=== PATIENT | female | born 1975 | race Caucasian/White ===

== ENCOUNTER 2019-03-25 11:54 | Emergency (ER) | payer SELFPAY ==
--- OUTSIDE RECORDS SUMMARY | 2019-03-25 12:01 | XMS REPORT | Continuity of Care Document ---
:1975 Author Organization [facility] Address [address] [place] [address] Phone Unavailable Care Team Providers Name Role Phone PHYSICIAN, NO Primary Care Physician Unavailable Insurance Providers Guarantor Jailyn Pal Address [address] [place] [address] Email [email or web address] Payer Self Pay Insurance Subscriber's Name Jailyn Pal Relationship Self / Same As Patient Group Number NA Group Name NA Advance Directives Directive Response Recorded Date/Time Advance Directive on File No 12/19/17 6:27pm Patient/Family Given Education Material R/T Y - 12/19/17....SBM 12/19/17 6: 27pm Directives? Chief Complaint and Reason for Visit Chief Complaint General Complaint Reason for Visit Headache Elevated blood pressure reading without diagnosis of hypertension Problems Active ProblemsNo active problem information available. Past Problems Medical Problem Onset Date Status Elevated blood pressure reading without diagnosis of hypertension Unknown Acute Headache Unknown Acute Medications No medication information available. Social History No social history information available. Hospital Discharge Instructions No hospital discharge instruction information available. Plan of Care Discharge Date 12/19/17 8:30pm Instructions/Education Provided Hypertension, Zkxv-dl-Wzvy General Headache Without Cause, Qpnc-uy-Lsmi Forms Provided Prescription Opioid Use Portal Welcome Letter Prescriptions See Medication Section Referrals NO PHYSICIAN Additional Instructions/Education FOLLOW UP WITH A PRIMARY CARE PROVIDER OR [facility] IN 2-3 DAYS TO KEEP A BLOOD PRESSURE LOG TO DETERMINE IF BLOOD PRESSURE MEDICATION IS NEEDED. ALSO SCHEDULED APPOINTMENT WITH STOCK FEEDER DUE TO PAST MEDICAL HISTORY, RETURN TO THE ER IF YOUR SYMPTOMS WORSEN Functional Status No functional status information available. Allergies, Adverse Reactions, Alerts No allergy information available. Immunizations No immunization information available. Vital Signs Acute Vital Signs Vital Response Date/Time Blood Pressure 129/75 mm Hg 12/19/2017 8:30pm Pulse Pulse Rate (adult) 55 beats per minute (60 - 100) 12/19/2017 8:30pm Respiratory Rate 15 breaths per minute (10 - 24) 12/19/2017 8:30pm Temperature Source Oral 12/19/2017 8:30pm Height 5 ft 4 in 12/19/2017 6:27pm Weight 188.38 lb 12/19/2017 6:27pm Body Mass Index 32.3 kg/m^2 12/19/2017 6:27pm Results Laboratory Results Test Name Result Units Flags Reference Collection Result Comments Date/Time Date/Time White Blood Count 9.3 K/ul 4.0-11.5 12/19/2017 12/19/2017 6:54pm 7:01pm Red Blood Count 5.24 M/ul H 3.80-5.20 12/19/2017 12/19/2017 6:54pm 7:01pm Hemoglobin 12.9 g/dl 10.5-15.7 12/19/2017 12/19/2017 6:54pm 7:01pm Hematocrit 40.4 % 34.0-50.0 12/19/2017 12/19/2017 6:54pm 7:01pm Mean Corpuscular 77.1 fl L 78-98 12/19/2017 12/19/2017 Volume 6:54pm 7:01pm Mean Corpuscular 24.6 pg L 26.2-33.4 12/19/2017 12/19/2017 Hemoglobin 6:54pm 7:01pm Mean Corpuscular 31.9 g/dl 31.5-36.2 12/19/2017 12/19/2017 Hemoglobin Concent 6:54pm 7:01pm Red Cell 14.2 % 11.5-15.5 12/19/2017 12/19/2017 Distribution Width 6:54pm 7:01pm Platelet Count 437 K/ul H 137-338 12/19/2017 12/19/2017 6:54pm 7:01pm Mean Platelet 6.6 fl L 8.4-11.8 12/19/2017 12/19/2017 Volume 6:54pm 7:01pm Neutrophils (%) 66.1 % 44.4-80.1 12/19/2017 12/19/2017 (Auto) 6:54pm 7:01pm Lymphocytes (%) 26.6 % 10.0-50.0 12/19/2017 12/19/2017 (Auto) 6:54pm 7:01pm Monocytes (%) 4.8 % 3.6-12.04 12/19/2017 12/19/2017 (Auto) 6:54pm 7:01pm Eosinophils (%) 0.8 % 0.0-5.41 12/19/2017 12/19/2017 (Auto) 6:54pm 7:01pm Basophils (%) 1.6 % H 0.0-0.79 12/19/2017 12/19/2017 (Auto) 6:54pm 7:01pm Prothrombin Time 10.9 SECONDS 10.3-12.3 12/19/2017 12/19/2017 6:54pm 7:12pm THERAPEUTIC LEVEL: 1.5 to 1.9 times normal range of PT Prothromb Time 0.99 12/19/2017 12/19/2017 International 6:54pm 7:12pm Recommended therapeutic range for patients receiving Ratio warfarin (coumadin) therapy: INR is 2.0 to 3.0 Recommended range for patients with mechanical prosthetic heart valves: INR is 2.5 to 3.5 Activated Partial 26.1 SECONDS 22.5-37.0 12/19/2017 12/19/2017 Thromboplast Time 6:54pm 7:12pm Random Glucose 106 mg/dL 74-106 12/19/2017 12/19/2017 6:54pm 7:22pm Blood Urea 12 mg/dL 6-20 12/19/2017 12/19/2017 Nitrogen 6:54pm 7:22pm Serum Osmolality 276 L 280-300 12/19/2017 12/19/2017 6:54pm 7:22pm Creatinine 0.7 mg/dL 0.50-0.90 12/19/2017 12/19/2017 6:54pm 7:22pm Glomerular > 60.00 12/19/2017 12/19/2017 GFR RESULTS ARE REPORTED IN mL/min/1.73m2. Filtration Rate 6:54pm 7:22pm Calc Normal GFR: >60mL/min Moderately decreased GFR: 30-59 mL/min Severely decreased GFR: 15-29 mL/min Kidney Failure (or Dialysis): <15 mL/min The calculated eGFR is not valid for patients younger than 18 years or older than 75 years. BUN/Creatinine 17.1 12-12/19/2017 12/19/2017 Ratio 6:54pm 7:22pm Sodium Level 138 mmol/L 135-145 12/19/2017 12/19/2017 6:54pm 7:22pm Potassium Level 3.3 mmol/L L 3.5-5.2 12/19/2017 12/19/2017 6:54pm 7:22pm Chloride Level 96 mmol/L L 98-108 12/19/2017 12/19/2017 6:54pm 7:22pm Carbon Dioxide 28 mmol/L -12/19/2017 12/19/2017 Level 6:54pm 7:22pm Anion Gap 17.3 mEq/L -12/19/2017 12/19/2017 6:54pm 7:22pm Calcium Level 10.0 mg/dL 8.6-10.0 12/19/2017 12/19/2017 6:54pm 7:22pm Magnesium Level 1.9 mg/dL 1.6-2.6 12/19/2017 12/19/2017 6:54pm 7:22pm Total Protein 8.3 g/dL 6.6-8.7 12/19/2017 12/19/2017 6:54pm 7:22pm Albumin 4.6 g/dL 3.5-5.2 12/19/2017 12/19/2017 6:54pm 7:22pm Globulin 3.7 gm/dL 12/19/2017 12/19/2017 6:54pm 7:22pm Albumin/Globulin 1.2 >1.0 12/19/2017 12/19/2017 Ratio 6:54pm 7:22pm Total Bilirubin 0.4 mg/dL 0.0-1.2 12/19/2017 12/19/2017 6:54pm 7:22pm Aspartate Amino 15 U/L 15-32 12/19/2017 12/19/2017 Transf (AST/SGOT) 6:54pm 7:22pm Alanine 8 U/L 0-33 12/19/2017 12/19/2017 Aminotransferase 6:54pm 7:22pm (ALT/SGPT) CD-Ufn-K-Type 47 pg/mL 0-125 12/19/2017 12/19/2017 Natriuretic 6:54pm 7:28pm Peptide Total Alkaline 63 U/L 35-105 12/19/2017 12/19/2017 Phosphatase 6:54pm 7:22pm Thyroid 0.81 uIU/mL 0.36-3.74 12/19/2017 12/19/2017 Stimulating 6:54pm 7:28pm Hormone (TSH) Creatine Kinase 40 U/L 20-180 12/19/2017 12/19/2017 6:54pm 7:22pm Troponin I < 0.30 ng/mL 0.0-0.5 12/19/2017 12/19/2017 6:54pm 7:28pm Creatine Kinase MB < 1.0 ng/ml 0.0-3.6 12/19/2017 12/19/2017 6:54pm 7:28pm DIAGNOSTIC CITERIA: CKMB CKMB RELATIVE INDEX SUGGESTIVE OF NON-AMI < or=5 N/A ACE ZONE (INCONCLUSIVE) > 5 < or=4 SUGGESTIVE OF AMI >5 > 4 Myoglobin < 25 ng/mL L 25-58 12/19/2017 12/19/2017 6:54pm 7:28pm Procedures No procedure information available. Encounters Encounter Location Arrival/Admit Date Discharge/Depart Date Attending Provider Departed [place] 12/19/17 6:10pm 12/19/17 8:30pm CHRISTIANO CURTIS MD Emergency Room [facility] Recent Diagnosis
[2019-03-25] MEDS ORDERED: METHYLPREDNISOLONE 125 MG INJ ONE (12:39)
[2019-03-25] MEDS ORDERED: KETOROLAC 30 MG/ML INJ ONE (12:39)
--- NOTE | 2019-03-25 14:01 | RAD REPORT ---
EXAM DESCRIPTION: MRI - C Spine Wo Cont - 03/25/2019 1:42 pm CLINICAL HISTORY: LEFT ARM NUMBNESS COMPARISON: C Spine Ap/Lat dated 10/13/2016 TECHNIQUE: Sagittal T1-weighted, T2-weighted and T2-STIR sequences were obtained as well as T2 medic sequence. FINDINGS: Cervical vertebral bodies are normal in height and alignment. No suspicious marrow edema o r marrow replacing process. No paraspinal mass. Cerebellar tonsils and mid-line skull base show no suspicious finding. No significant finding at the C1 and C2 levels. C2-3 level: No disc or central canal abnormality. Mild left facet joint degenerative change. C3-4 level: No significant findings. C4-5 level: No significant findings. C5-6 level: Disc space narrowing is present matching the 2017 study. Disc bulge and endplate spurring changes extend across the central canal and into the origin of each exit foramen. Anterior subarachn oid space is attenuated. Anterior cord contour is slightly flattened. Central spinal stenosis to 9 mm noted. Mild bilateral foraminal encroachment seen. C6-7 level: No significant findings. C7-T1 level: No significant findings. No cord signal abnormality. No expansile change. IMPRESSION: C5-6 disc bulge and endplate spurring changes cause mild flattening of the cord, central spinal stenosis to 9 mm and mild bilateral foraminal encroachment. No cord signal abnormality.
[2019-03-25 14:22] LABS: Absolute Lymphocytes (CBC) 1.1 K/uL (0.7-4.9); Basophils % 0.6 % (0-1.3); Hematocrit 36.6 % (36.0-45.0); Lymphocytes % 17.5 % (15.3-44.8); MPV 7.8 fL (7.6-11.3); RBC Red Blood Cell Count 4.66 M/uL (3.86-4.86)
[2019-03-25 14:30] LABS: Potassium 3.9 mmol/L (3.5-5.1)
--- NOTE | 2019-03-25 15:14 | ER ---
Nurse's Notes [facility] Name: Jailyn Huber Age: 43 yrs Sex: Female : 1975 Arrival Date: 03/25/2019 Time: 11:55 Bed 18 Private MD: Diagnosis: Radiculopathy;Radiculopathy, cervical region;Left thumb numbess/paresthesia Presentation: 03/25 11:56 Presenting complaint: Patient states: left arm tingling, left thumb is numb. Denies sv recent fall or injury. Transition of care: patient was not received from another setting of care. Transition of care: patient was not received from another setting of care. Onset of symptoms was March 18, 2019. Care prior to arrival: Medication(s) given: ASA, 325 mg. 11:56 Method Of Arrival: Ambulatory sv 11:56 Acuity: MISSY 2 sv 12:03 Risk Assessment: Do you want to hurt yourself or someone else? Patient reports no rb1 desire to harm self or others. Initial Sepsis Screen: Does the patient meet any 2 criteria? No. Patient's initial sepsis screen is negative. Does the patient have a suspected source of infection? No. Patient's initial sepsis screen is negative. Historical: - Allergies: 11:58 No Known Allergies; sv - PMHx: 11:58 BRADYCARDIA; Hypothyroidism; sv - PSHx: 11:58 breast surg for clogged duct; ; gastric sleeve; sv - Immunization history:: Adult Immunizations up to date. - Ebola Screening: : Patient negative for fever greater than or equal to 101.5 degrees Fahrenheit, and additional compatible Ebola Virus Disease symptoms. - Social history:: Smoking status: Patient/guardian denies using tobacco. Screenin:03 Abuse screen: Denies threats or abuse. Nutritional screening: No deficits noted. rb1 Tuberculosis screening: No symptoms or risk factors identified. Fall Risk None identified. Assessment: 12:03 General: Appears in no apparent distress. comfortable, Behavior is calm, cooperative, rb1 Denies fever. Pain: Complains of pain in left arm Pain currently is 6 out of 10 on a pain scale. Neuro: Level of Consciousness is awake, alert, obeys commands, Oriented to person, place, time, situation, Reports numbness in left thumb Reports tingling in the left arm. Cardiovascular: Capillary refill < 3 seconds is brisk in bilateral fingers. Respiratory: Airway is patent Respiratory effort is even, unlabored, Respiratory pattern is regular, symmetrical. GI: No signs and/or symptoms were reported involving the gastrointestinal system. : No signs and/or symptoms were reported regarding the genitourinary system. Derm: Skin is pink, warm \T\ dry. Musculoskeletal: Range of motion: intact in all extremities. 13:00 Reassessment: Patient appears in no apparent distress at this time. Patient and/or rb1 family updated on plan of care and expected duration. Pain level reassessed. Patient is alert, oriented x 3, equal unlabored respirations, skin warm/dry/pink. 14:00 Reassessment: Patient appears in no apparent distress at this time. Patient and/or rb1 family updated on plan of care and expected duration. Pain level reassessed. Patient is alert, oriented x 3, equal unlabored respirations, skin warm/dry/pink. 15:00 Reassessment: Patient appears in no apparent distress at this time. No changes from rb1 previously documented assessment. 15:40 Reassessment: Patient appears in no apparent distress at this time. Patient and/or rb1 family updated on plan of care and expected duration. Pain level reassessed. Patient is alert, oriented x 3, equal unlabored respirations, skin warm/dry/pink. Vital Signs: 11:58 BP 181 / 78; Pulse 74; Resp 20; Temp 98.1(O); Pulse Ox 100% ; Weight 90.72 kg; Height 5 sv ft. 4 in. (162.56 cm); Pain 6/10; 13:00 BP 135 / 76; Pulse 63; Resp 17; Pulse Ox 99% on R/A; Pain 4/10; rb1 13:59 BP 117 / 51; Pulse 62; Resp 18; Temp 98.9(O); Pulse Ox 98% on R/A; mh5 15:00 BP 128 / 68; Pulse 65; Resp 17; Pulse Ox 99% on R/A; Pain 3/10; rb1 15:40 BP 121 / 67; Pulse 73; Resp 18; Pulse Ox 99% on R/A; rb1 11:58 Body Mass Index 34.33 (90.72 kg, 162.56 cm) sv ED Course: 11:55 Patient arrived in ED. as 11:56 Arm band placed on. sv 11:57 Triage completed. sv 12:00 Freddy Jaimes MD is Attending Physician. kdr 12:03 Patient has correct armband on for positive identification. Bed in low position. Call rb1 light in reach. Side rails up X 1. Pulse ox on. NIBP on. Warm blanket given. 12:34 Jacki Hudson, RN is Primary Nurse. rb1 12:45 Inserted saline lock: 22 gauge in right antecubital area, using aseptic technique. rb1 13:20 Patient moved to MRI via wheelchair. em2 13:33 C Spine Wo Cont In Process Unspecified. EDMS 14:18 Chem 7 Sent. 5 14:18 CBC with Diff Sent. mh5 14:19 Initial lab(s) drawn, by de, sent to lab. mh5 15:58 No provider procedures requiring assistance completed. IV discontinued, intact, rb1 bleeding controlled, No redness/swelling at site. Pressure dressing applied. Administered Medications: 12:50 Drug: SOLU-Medrol 125 mg Route: IVP; Site: right antecubital; rb1 13:05 Follow up: Response: No adverse reaction rb1 12:50 Drug: TORadol - Ketorolac 15 mg Route: IVP; Site: right antecubital; rb1 13:05 Follow up: Response: No adverse reaction rb1 12:50 Drug: Robaxin 1 grams Route: IVPB; Infused Over: 1 hrs; Site: right antecubital; rb1 13:20 Follow up: Response: No adverse reaction; IV Status: Completed infusion rb1 15:49 Not Given (provider discretion): Lopressor 5 mg IVP every 5 minutes; Hold for SBP < 100 rb1 or HR < 60. x3 Outcome: 15:12 Discharge ordered by . kdr 15:58 Patient left the ED. rb1 15:58 Discharged to home ambulatory. rb1 15:58 Condition: stable 15:58 Discharge instructions given to patient, Instructed on discharge instructions, follow up and referral plans. medication usage, Demonstrated understanding of instructions, follow-up care, medications, Prescriptions given X 3. Signatures: Dispatcher [employer] EDMS Kristal Clayton RN RN Freddy Jaimes MD MD [facility] Lucero Gonzalez Enrique em2 Jacki Hudson, ARACELY RN [facility] Corrections: (The following items were deleted from the chart) 11:56 Care prior to arrival: None. sv sv 11:56 Acuity: MISSY 3 sv sv 11:58 Pulse 74bpm; Resp 20bpm; Pulse Ox 100%; Temp 98.1F Oral; 90.72 kg; Height 5 ft. 4 sv in.; BMI: 34.3; sv
--- NOTE | 2019-03-25 15:15 | EDPHYS ---
Physician Documentation [facility] Name: Jailyn Huber Age: 43 yrs Sex: Female : 1975 Arrival Date: 03/25/2019 Time: 11:55 Bed 18 Private MD: ED Physician Freddy Jaimes HPI: 03/25 15:19 This 43 yrs old Female presents to ER via Ambulatory with complaints of Arm kdr Pain. 15:19 The patient or guardian complains of pain, Thumb numbness. The complaints affect the kdr left bicep, left hand and left tricep. Context: The problem was sustained at home, resulted from unknown cause, The patient began to have pain in her left trapezius about a week ago. She now has pain in the left bicep and forearm with numbness of her left thumb. Onset: The symptoms/episode began/occurred gradually, 1 week(s) ago. Treatment prior to arrival includes: no previous treatment. Modifying factors: The symptoms are alleviated by nothing. the symptoms are aggravated by nothing. Associated signs and symptoms: The patient has no apparent associated signs or symptoms. Severity of symptoms: At their worst the symptoms were mild, in the emergency department the symptoms are unchanged. The patient has not experienced similar symptoms in the past. The patient has not recently seen a physician. Historical: - Allergies: 11:58 No Known Allergies; sv - PMHx: 11:58 BRADYCARDIA; Hypothyroidism; sv - PSHx: 11:58 breast surg for clogged duct; ; gastric sleeve; sv - Immunization history:: Adult Immunizations up to date. - Ebola Screening: : Patient negative for fever greater than or equal to 101.5 degrees Fahrenheit, and additional compatible Ebola Virus Disease symptoms. - Social history:: Smoking status: Patient/guardian denies using tobacco. ROS: 15:19 Constitutional: Negative for fever, chills, and weight loss, Eyes: Negative for injury, kdr pain, redness, and discharge, ENT: Negative for injury, pain, and discharge, Neck: Negative for injury, pain, and swelling, Cardiovascular: Negative for chest pain, palpitations, and edema, Respiratory: Negative for shortness of breath, cough, wheezing, and pleuritic chest pain, Abdomen/GI: Negative for abdominal pain, nausea, vomiting, diarrhea, and constipation, Back: Negative for injury and pain, : Negative for injury, bleeding, discharge, and swelling, Skin: Negative for injury, rash, and discoloration, Psych: Negative for depression, anxiety, suicide ideation, homicidal ideation, and hallucinations, Allergy/Immunology: Negative for hives, rash, and allergies, Endocrine: Negative for neck swelling, polydipsia, polyuria, polyphagia, and marked weight changes, Hematologic/Lymphatic: Negative for swollen nodes, abnormal bleeding, and unusual bruising. 15:19 MS/extremity: Positive for pain, paresthesias, pain generalized to left arm and paresthesia to left thumb. Exam: 15:19 Constitutional: This is a well developed, well nourished patient who is awake, alert, kdr and in no acute distress. Head/Face: Normocephalic, atraumatic. Eyes: Pupils equal round and reactive to light, extra-ocular motions intact. Lids and lashes normal. Conjunctiva and sclera are non-icteric and not injected. Cornea within normal limits. Periorbital areas with no swelling, redness, or edema. Neck: Trachea midline, no thyromegaly or masses palpated, and no cervical lymphadenopathy. Supple, full range of motion without nuchal rigidity, or vertebral point tenderness. No Meningismus. Chest/axilla: Normal chest wall appearance and motion. Nontender with no deformity. No lesions are appreciated. Cardiovascular: Regular rate and rhythm with a normal S1 and S2. No gallops, murmurs, or rubs. Normal PMI, no JVD. No pulse deficits. Respiratory: Lungs have equal breath sounds bilaterally, clear to auscultation and percussion. No rales, rhonchi or wheezes noted. No increased work of breathing, no retractions or nasal flaring. Abdomen/GI: Soft, non-tender, with normal bowel sounds. No distension or tympany. No guarding or rebound. No evidence of tenderness throughout. Back: No spinal tenderness. No costovertebral tenderness. Full range of motion. Skin: Warm, dry with normal turgor. Normal color with no rashes, no lesions, and no evidence of cellulitis. MS/ Extremity: Pulses equal, no cyanosis. Neurovascular intact. Full, normal range of motion. Psych: Awake, alert, with orientation to person, place and time. Behavior, mood, and affect are within normal limits. 15:19 Neuro: Orientation: is normal, Mentation: is normal, Cranial nerves: grossly normal, Cerebellar function: is grossly normal, Motor: is normal, Sensation: numbness, that is mild, of the dorsal aspect of distal phalanx of left thumb, dorsal aspect of proximal phalanx of left thumb, palmar aspect of distal phalanx of left thumb and palmar aspect of proximal phalanx of left thumb, pin prick testing is normal, 2 point discrimination is decreased in the dorsal aspect of distal phalanx of left thumb, dorsal aspect of proximal phalanx of left thumb, palmar aspect of distal phalanx of left thumb and palmar aspect of proximal phalanx of left thumb, temperature sense is normal, light touch sense is normal. Vital Signs: 11:58 BP 181 / 78; Pulse 74; Resp 20; Temp 98.1(O); Pulse Ox 100% ; Weight 90.72 kg; Height 5 sv ft. 4 in. (162.56 cm); Pain 6/10; 13:00 BP 135 / 76; Pulse 63; Resp 17; Pulse Ox 99% on R/A; Pain 4/10; rb1 13:59 BP 117 / 51; Pulse 62; Resp 18; Temp 98.9(O); Pulse Ox 98% on R/A; mh5 15:00 BP 128 / 68; Pulse 65; Resp 17; Pulse Ox 99% on R/A; Pain 3/10; rb1 15:40 BP 121 / 67; Pulse 73; Resp 18; Pulse Ox 99% on R/A; rb1 11:58 Body Mass Index 34.33 (90.72 kg, 162.56 cm) sv MDM: 15:09 Data reviewed: vital signs, nurses notes, lab test result(s), radiologic studies. kdr Counseling: I had a detailed discussion with the patient and/or guardian regarding: the historical points, exam findings, and any diagnostic results supporting the discharge/admit diagnosis, radiology results, the need for outpatient follow up. ED course: The patient continued to be stable in the ED. D/w Neurology/spine at [facility]. Recommended outpatient follow-up at [facility]. 15:12 Patient medically screened. kdr 03/25 13:48 Order name: CBC with Diff; Complete Time: 14:40 kdr 03/25 13:48 Order name: Chem 7; Complete Time: 14:40 kdr 03/25 12:36 Order name: C Spine Wo Cont; Complete Time: 14:40 EDMS Administered Medications: 12:50 Drug: SOLU-Medrol 125 mg Route: IVP; Site: right antecubital; rb1 13:05 Follow up: Response: No adverse reaction rb1 12:50 Drug: TORadol - Ketorolac 15 mg Route: IVP; Site: right antecubital; rb1 13:05 Follow up: Response: No adverse reaction rb1 12:50 Drug: Robaxin 1 grams Route: IVPB; Infused Over: 1 hrs; Site: right antecubital; rb1 13:20 Follow up: Response: No adverse reaction; IV Status: Completed infusion rb1 15:49 Not Given (provider discretion): Lopressor 5 mg IVP every 5 minutes; Hold for SBP < 100 rb1 or HR < 60. x3 Disposition: 03/25/19 15:12 Discharged to Home. Impression: Radiculopathy, Radiculopathy, cervical region, Left thumb numbess/paresthesia. - Condition is Stable. - Discharge Instructions: Cervical Radiculopathy, Neuropathic Pain, Radicular Pain. - Prescriptions for Ibuprofen 600 mg Oral Tablet - take 1 tablet by ORAL route every 6 hours As needed take with food; 16 tablet. Tramadol 50 mg Oral Tablet - take 1 tablet by ORAL route every 8 hours as needed; 12 tablet. Medrol (Mitch) 4 mg Oral Tablets, Dose Pack - take 1 tablet by ORAL route as directed - follow package instructions; 1 packet. - Medication Reconciliation Form, Thank You Letter, Prescription Opioid Use form. - Follow up: Private Physician; When: 2 - 3 days; Reason: If symptoms return, Further diagnostic work-up, Recheck today's complaints, Continuance of care, Re-evaluation by your physician. - Problem is new. - Symptoms are unchanged. Signatures: Dispatcher [employer] Kristal Contreras, RN RN Freddy Godinez MD MD kdr Barber, Rebecca RN RN rb1 Corrections: (The following items were deleted from the chart) 15:58 15:12 03/25/2019 15:12 Discharged to Home. Impression: Radiculopathy; Radiculopathy, rb1 cervical region; Left thumb numbess/paresthesia. Condition is Stable. Forms are Medication Reconciliation Form, Thank You Letter, Antibiotic Education, Prescription Opioid Use. Follow up: Private Physician; When: 2 - 3 days; Reason: If symptoms return, Further diagnostic work-up, Recheck today's complaints, Continuance of care, Re-evaluation by your physician. Problem is new. Symptoms are unchanged. kdr
[2019-03-25 16:09] VITALS: BP 117/51; TEMP 98.9; O2SAT 98
== END 2019-03-25 15:58 | disposition home or self-care (01) ==
LOC: ER 11:54
DX: M54.12 Radiculopathy, cervical region (principal); R20.2 Paresthesia of skin
CPT/HCPCS: 36415; 72141; 80048; 85025; 96365; 96375; 99284; J2800; J2930

== ENCOUNTER 2020-06-06 15:33 | Emergency (ER) | payer SELFPAY ==
[2020-06-06 22:10] LABS: Absolute Lymphocytes (CBC) 2.4 K/uL (0.7-4.9); Basophils % 0.2 % (0-1.3); Hematocrit 38.4 % (36.0-45.0); Lymphocytes % 34.4 % (15.3-44.8); MPV 7.9 fL (7.6-11.3); RBC Red Blood Cell Count 4.37 M/uL (3.86-4.86)
[2020-06-06 22:11] LABS: Protime INR 0.95
[2020-06-06 22:12] LABS: Barbiturates NEGATIVE (NEGATIVE); Benzodiazepines NEGATIVE (NEGATIVE); Cocaine NEGATIVE (NEGATIVE); METHAMPHETAM NEGATIVE (NEGATIVE); Methadone NEGATIVE (NEGATIVE); Opiates NEGATIVE (NEGATIVE); Phencyclidine NEGATIVE (NEGATIVE); THC Cannibis NEGATIVE (NEGATIVE)
[2020-06-06 22:31] LABS: ALT/SGPT 20 U/L (12-78); Albumin 3.2 g/dL (3.4-5.0); Alkaline Phosphatase 57 U/L (45-117); BUN Blood Urea Nitrogen 7 mg/dL (7-18); Bicarbonate 27 mmol/L (21-32); Bilirubin Direct < 0.1 mg/dL (0-0.2); Bilirubin Total 0.2 mg/dL (0.2-1.0); Glucose Level 107 mg/dL (74-106); NT PRO-BNP 48 pg/mL (<125); Protein, Total 6.8 g/dL (6.4-8.2); Sodium Level 141 mmol/L (136-145); T3 Free 2.56 pg/mL (2.18-3.98); Troponin (Emerg Dept Use Only) < 0.02 ng/mL (0.0-0.045)
[2020-06-06] MEDS ORDERED: NA CHLORIDE 0.9% 500 ML ONE (22:33)
[2020-06-06 22:40] LABS: AST/SGOT 19 U/L (15-37); Magnesium 2.2 mg/dL (1.8-2.4); Potassium 3.9 mmol/L (3.5-5.1)
[2020-06-06 23:34] LABS: Urine Blood 2+ (NEG); Urine Glucose NEGATIVE (NEG); Urine Protein NEGATIVE (NEG); Urine Specific Gravity 1.025 (1.005-1.030)
--- NOTE | 2020-06-06 23:41 | EDPHYS ---
Physician Documentation [facility] Name: Jailyn Huber Age: 44 yrs Sex: Female : 1975 Arrival Date: 06/06/2020 Time: 15:36 Bed 23 Private MD: ED Physician Ramirez Mc HPI: 06/06 20:57 This 44 yrs old Female presents to ER via Ambulatory with complaints of High cp Blood Pressure, Shoulder Pain, Arm Pain. 20:57 The patient has elevated blood pressure and discovered this at home, with a home device.cp 20:57 Onset: The symptoms/episode began/occurred gradually. cp 20:57 Associated signs and symptoms: Pertinent positives: chest pain, palpitations, upper cp back/shoulder pain. 20:57 Severity of symptoms: in the emergency department the blood pressure is improved, cp mildly, 144 mm Hg. Patient reports being recently started on hypertensive medication, Amlodipine 2.5 mg, approximately 2 weeks ago. Patient reports continued elevated blood pressure, palpitations and intermittent chest pain. Patient reports pain to upper back/shoulders. 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 - Social history:: Smoking status: Patient reports the use of cigarette tobacco products, denies chronic smoking, but will smoke occasionally. ROS: 21:05 Constitutional: Negative for body aches, chills, fever, poor PO intake. cp 21:05 Eyes: Negative for injury, pain, redness, and discharge. cp 21:05 ENT: Negative for ear pain, sore throat, difficulty swallowing, difficulty handling secretions. 21:05 Cardiovascular: Positive for chest pain, palpitations, Negative for edema. 21:05 Respiratory: Negative for cough, shortness of breath, wheezing. 21:05 Abdomen/GI: Negative for abdominal pain, nausea, vomiting, and diarrhea. 21:05 Back: Positive for pain at rest, pain with movement, of the left scapular area and right scapular area, Negative for injury or acute deformity. 21:05 Skin: Negative for rash. 21:05 Neuro: Negative for altered mental status, headache, syncope, weakness. 21:05 All other systems are negative. Exam: 17:15 ECG was reviewed by the Attending Physician. cp 21:10 Constitutional: The patient appears in no acute distress, alert, awake, cp non-diaphoretic, non-toxic, well developed, well nourished. 21:10 Head/Face: Normocephalic, atraumatic. cp 21:10 Eyes: Periorbital structures: appear normal, Conjunctiva: normal, no exudate, no injection, Sclera: no appreciated abnormality, Lids and lashes: appear normal, bilaterally. 21:10 ENT: External ear(s): are unremarkable, Nose: is normal, Mouth: Lips: moist, Oral mucosa: pink and intact, moist, Posterior pharynx: Airway: no evidence of obstruction, patent. 21:10 Neck: ROM/movement: is normal, is supple, without pain, no range of motions limitations. 21:10 Chest/axilla: Inspection: normal, Palpation: is normal, no crepitus, no tenderness. 21:10 Cardiovascular: Rate: normal, Rhythm: regular, Pulses: Pulses are 2+ in right radial artery and left radial artery. Edema: is not appreciated, JVD: is not appreciated. 21:10 Respiratory: the patient does not display signs of respiratory distress, Respirations: normal, no use of accessory muscles, no retractions, labored breathing, is not present, Breath sounds: are clear throughout, no decreased breath sounds, no stridor, no wheezing. 21:10 Abdomen/GI: Inspection: abdomen appears normal, Bowel sounds: active, all quadrants, Palpation: abdomen is soft and non-tender, in all quadrants. 21:10 Back: pain, that is mild, of the left scapular area and right scapular area, ROM is normal. 21:10 Skin: no rash present. 21:10 Neuro: Orientation: to person, place \T\ time. Mentation: is normal, Cerebellar function: is grossly normal, Motor: moves all fours, strength is normal, Sensation: is normal. Vital Signs: 15:59 BP 144 / 88; Pulse 67; Resp 17; Temp 98.1; Pulse Ox 99% ; Weight 99.79 kg; Height 5 ft. ll1 4 in. (162.56 cm); Pain 3/10; 23:58 BP 141 / 80; Pulse 89; Resp 16; Pulse Ox 98% on R/A; iw 15:59 Body Mass Index 37.76 (99.79 kg, 162.56 cm) ll1 MDM: 20:46 Patient medically screened. wil 23:40 Data reviewed: vital signs, nurses notes, lab test result(s), EKG, radiologic studies, cp plain films. 23:40 Differential diagnosis: hypertensive crisis, Malignant HTN, cardiac arrythmia, cp electrolyte abnormality. Test interpretation: by ED physician or midlevel provider: ECG, plain radiologic studies. Counseling: I had a detailed discussion with the patient and/or guardian regarding: the historical points, exam findings, and any diagnostic results supporting the discharge/admit diagnosis, lab results, radiology results, the need for outpatient follow up, for definitive care, a pharmacy intake coordinator, to return to the emergency department if symptoms worsen or persist or if there are any questions or concerns that arise at home. Response to treatment: the patient's symptoms have mildly improved after treatment, and as a result, I will discharge patient. 06/06 21:00 Order name: Basic Metabolic Panel; Complete Time: 23:16 06/06 23:16 Interpretation: Normal except: CL 109; GLUC 107. 06/06 21:00 Order name: CBC with Diff; Complete Time: 22:18 cp 06/06 22:18 Interpretation: Normal except: MCV 87.8; MCH 29.3. 06/06 21:00 Order name: LFT's; Complete Time: 23:16 06/06 23:16 Interpretation: Normal except: ALB 3.2; GLOB 3.6; A/G 0.9. 06/06 21:00 Order name: Magnesium; Complete Time: 23:16 06/06 21:00 Order name: NT PRO-BNP; Complete Time: 23:16 06/06 21:00 Order name: PT-INR; Complete Time: 22:18 06/06 21:00 Order name: Troponin (emerg Dept Use Only); Complete Time: 23:16 cp 06/06 23:17 Interpretation: Within normal limits: TROPED < 0.02. 06/06 21:00 Order name: XRAY Chest (1 view) 06/06 21:00 Order name: UDS; Complete Time: 22:18 cp 06/06 21:00 Order name: TSH; Complete Time: 23:16 cp 06/06 21:00 Order name: T3 Free; Complete Time: 23:16 cp 06/06 21:00 Order name: T4 Free; Complete Time: 23:16 cp 06/06 22:17 Order name: Urine Dipstick--Ancillary (enter results); Complete Time: 23:35 tt3 06/06 22:17 Order name: Urine --Ancillary (enter results); Complete Time: 23:35 tt3 06/06 17:42 Order name: EKG; Complete Time: 17:43 sv 06/06 17:42 Order name: EKG - Nurse/Tech; Complete Time: 17:42 sv 06/06 21:00 Order name: Cardiac monitoring; Complete Time: 22:04 cp 06/06 21:00 Order name: IV Saline Lock; Complete Time: 22:04 cp 06/06 21:00 Order name: Labs collected and sent; Complete Time: 22:04 cp 06/06 21:00 Order name: O2 Per Protocol; Complete Time: 22:04 cp 06/06 21:00 Order name: O2 Sat Monitoring; Complete Time: 22:04 cp 06/06 21:00 Order name: Urine Dipstick-Ancillary (obtain specimen); Complete Time: 22:04 cp 06/06 21:00 Order name: Urine Test (obtain specimen); Complete Time: 22:04 cp EC:15 Rate is 65 beats/min. Rhythm is regular. CO interval is normal. QRS interval is normal. cp QT interval is normal. T waves are Inverted in lead aVR. Interpreted by me. Reviewed by me. Administered Medications: 22:37 Drug: NS 0.9% 500 ml Route: IV; Rate: bolus; Site: right antecubital; iw Disposition: 06/07 08:21 Co-signature as Attending Physician, Ramirez Mc MD I agree with the assessment and wil plan of care. Disposition: 06/06/20 23:40 Discharged to Home. Impression: Hypertensive heart disease, Palpitations, Other chest pain, Urinary tract infection, site not specified. - Condition is Stable. - Discharge Instructions: Holter Monitoring, Hypertension, Palpitations, How to Take Your Blood Pressure, [id number], Aspirin and Your Heart, Managing Your Hypertension. - Prescriptions for Macrobid 100 mg Oral Capsule - take 1 capsule by ORAL route every 12 hours for 7 days; 14 capsule. - Work release form, Medication Reconciliation Form, Thank You Letter, Antibiotic Education, Prescription Opioid Use form. - Follow up: Ronaldo Daley MD; When: 1 - 2 days; Reason: Recheck today's complaints. - Problem is new. - Symptoms have improved. Signatures: Dispatcher [employer] EDKristal Humphrey RN RN sv Anderson, Corey, MD MD cha Williams, Irene, RN RN iw Ramirez Austin PA PA cp Sofya Melendez RN RN ll1 Corrections: (The following items were deleted from the chart) 06/06 16:04 16:04 Social history: Smoking status: Patient denies any tobacco usage or history of. ll1 ll1 23:47 23:40 06/06/2020 23:40 Discharged to Home. Impression: Hypertensive heart disease; cp Palpitations; Other chest pain. Condition is Stable. Forms are Medication Reconciliation Form, Thank You Letter, Antibiotic Education, Prescription Opioid Use. Follow up: Ronaldo Daley; When: 1 - 2 days; Reason: Recheck today's complaints. Problem is new. Symptoms have improved. cp 23:58 23:47 06/06/2020 23:40 Discharged to Home. Impression: Hypertensive heart disease; iw Palpitations; Other chest pain; Urinary tract infection, site not specified. Condition is Stable. Discharge Instructions: Holter Monitoring, Hypertension, Palpitations, How to Take Your Blood Pressure, Lyac-hd-Ggls, Aspirin and Your Heart, Managing Your Hypertension. Prescriptions for Macrobid 100 mg Oral Capsule - take 1 capsule by ORAL route every 12 hours for 7 days; 14 capsule. and Forms are Medication Reconciliation Form, Thank You Letter, Antibiotic Education, Prescription Opioid Use. Follow up: Ronaldo Daley; When: 1 - 2 days; Reason: Recheck today's complaints. Problem is new. Symptoms have improved. cp
--- NOTE | 2020-06-06 23:41 | ER ---
Nurse's Notes [facility] Name: Jailyn Huber Age: 44 yrs Sex: Female : 1975 Arrival Date: 06/06/2020 Time: 15:36 Bed 23 Private MD: Diagnosis: Hypertensive heart disease;Palpitations;Other chest pain;Urinary tract infection, site not specified Presentation: 06/06 15:59 Chief complaint: Patient states: Fatigue, chills, L back, L arm, L CP off/on for 2-3 ll1 weeks. Saw her doctor and they put her on BP pill (amlodipine 2.5mg daily). Still feels bad overall. Coronavirus screen: Client denies travel out of the [place] in the last 14 days. At this time, the client does not indicate any symptoms associated with coronavirus-19. Ebola Screen: Patient denies travel to an Ebola-affected area in the 21 days before illness onset. Initial Sepsis Screen: Does the patient meet any 2 criteria? No. Patient's initial sepsis screen is negative. Does the patient have a suspected source of infection? No. Patient's initial sepsis screen is negative. Risk Assessment: Do you want to hurt yourself or someone else? Patient reports no desire to harm self or others. Onset of symptoms was May 16, 2020. 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 - Social history:: Smoking status: Patient reports the use of cigarette tobacco products, denies chronic smoking, but will smoke occasionally. Screenin:04 Abuse screen: Denies threats or abuse. Denies injuries from another. Nutritional iw screening: No deficits noted. Tuberculosis screening: No symptoms or risk factors identified. Fall Risk None identified. Assessment: 22:03 General: Appears in no apparent distress. Behavior is calm, cooperative. Pain: Pain: iw Complains of pain in left arm. 22:03 Neuro: Level of Consciousness is awake, alert, obeys commands, Oriented to person, iw place, time, situation, Moves all extremities. Full function. Cardiovascular: Patient's skin is warm and dry. Respiratory: Respiratory effort is even, unlabored, Respiratory pattern is regular, symmetrical. Musculoskeletal: Range of motion: intact in all extremities. Vital Signs: 15:59 BP 144 / 88; Pulse 67; Resp 17; Temp 98.1; Pulse Ox 99% ; Weight 99.79 kg; Height 5 ft. ll1 4 in. (162.56 cm); Pain 3/10; 23:58 BP 141 / 80; Pulse 89; Resp 16; Pulse Ox 98% on R/A; iw 15:59 Body Mass Index 37.76 (99.79 kg, 162.56 cm) ll1 ED Course: 15:36 Patient arrived in ED. mr 16:02 Triage completed. ll1 16:04 Arm band placed on. ll1 20:39 Ramirez Austin PA is PHCP. cp 20:39 Ramirez Mc MD is Attending Physician. cp 20:51 Karely Okeefe, ARACELY is Primary Nurse. iw 21:59 Initial lab(s) drawn, by co, sent to lab. Inserted saline lock: 20 gauge in right iw antecubital area, using aseptic technique. Blood collected. 22:00 Patient has correct armband on for positive identification. iw 22:02 XRAY Chest (1 view) In Process Unspecified. EDMS 23:39 Ronaldo Daley MD is Referral Physician. cp 23:58 No provider procedures requiring assistance completed. IV discontinued, intact, iw bleeding controlled, No redness/swelling at site. Pressure dressing applied. Administered Medications: 22:37 Drug: NS 0.9% 500 ml Route: IV; Rate: bolus; Site: right antecubital; iw Outcome: 23:40 Discharge ordered by . cp 23:58 Discharged to home ambulatory. iw 23:58 Condition: good 23:58 Discharge instructions given to patient, Instructed on discharge instructions, follow up and referral plans. medication usage, Demonstrated understanding of instructions, follow-up care, medications, Prescriptions given X 1. 23:58 Patient left the ED. iw Signatures: Dispatcher [employer] AKIRAIL Mira Drake mr Karely Okeefe RN RN Ramirez Alegre PA PA cp Lewis, Lynsay, RN RN ll1 Corrections: (The following items were deleted from the chart) 16:04 16:04 Social history: Smoking status: Patient denies any tobacco usage or history of. ll1 ll1 22:04 22:03 Pain: zuri keating
[2020-06-07 00:25] VITALS: TEMP 98.1
[2020-06-07 00:26] VITALS: BP 141/80; O2SAT 98
--- NOTE | 2020-06-07 04:33 | EKG ---
Test Date: 2020-06-06 Test Time: 16:09:54 Process Machine Operator: JULIETTE MEASUREMENT RESULTS: Intervals: Rate: 65 CA: 158 QRSD: 80 QT: 390 QTc: 405 [place]: P: 48 CA: 158 QRS: 46 T: 26 INTERPRETIVE STATEMENTS: Normal sinus rhythm Normal ECG No previous ECG available for comparison Electronically Signed On 06-07-20 04:32:14 CDT by Ronaldo Daley
--- NOTE | 2020-06-07 08:12 | RAD REPORT ---
EXAM DESCRIPTION: Christine Single View06/06/2020 10:01 pm CLINICAL HISTORY: Palpitations COMPARISON: 2016 FINDINGS: The lungs appear clear of acute infiltrate. The heart is normal size IMPRESSION: No acute abnormalities displayed
== END 2020-06-06 23:58 | disposition home or self-care (01) ==
LOC: ER 15:33
DX: I11.9 Hypertensive heart disease without heart failure (principal); N39.0 Urinary tract infection, site not specified; R00.2 Palpitations; F17.210 Nicotine dependence, cigarettes, uncomplicated
CPT/HCPCS: 36415; 71045; 80048; 80076; 80307; 81003; 81025; 83735; 83880; 84439; 84443; 84481; 84484; 85025; 85610; 93005; 99284; J7040

== ENCOUNTER 2021-01-28 07:45 | Emergency (ER) | payer SELFPAY ==
[2021-01-28] MEDS ORDERED: NA CHLORIDE 0.9% 1,000 ML ONE (08:14)
[2021-01-28 08:21] LABS: Urine Blood Trace-lysed (Negative); Urine Glucose Negative (Negative); Urine Protein Trace (Negative); Urine Specific Gravity >=1.030 (1.005-1.030)
[2021-01-28 08:24] LABS: Absolute Lymphocytes (CBC) 1.6 K/uL (0.7-4.9); Basophils % 1.5 % (0-1.3); Hematocrit 42.6 % (36.0-45.0); Lymphocytes % 27.9 % (15.3-44.8); MPV 7.8 fL (7.6-11.3); RBC Red Blood Cell Count 4.73 M/uL (3.86-4.86)
[2021-01-28 08:35] LABS: Albumin 3.5 g/dL (3.4-5.0); Bilirubin Direct 0.1 mg/dL (0-0.2); Bilirubin Total 0.4 mg/dL (0.2-1.0); Potassium 3.5 mmol/L (3.5-5.1); Protein, Total 7.3 g/dL (6.4-8.2)
--- NOTE | 2021-01-28 09:07 | RAD REPORT ---
EXAM DESCRIPTION: CT - Abdomen Pelvis W Contrast - 01/28/2021 8:39 am CLINICAL HISTORY: Abdominal pain COMPARISON: none. TECHNIQUE: Computed axial tomography of the abdomen pelvis was obtained. 100 cc Isovue-300 was admin istered intravenously. Oral contrast was not requested which limits evaluation of bowel. All CT scans are performed using dose optimization technique as appropriate and may include automated exposure control or mA/KV adjustment according to patient size. FINDINGS: Postsurgical changes involve the stomach. 4.3 centimeter low-density area is present within the left lobe of the liver. It extends to the perip po. The spleen, pancreas, adrenal and kidneys appear unremarkable. There is no evidence of diverticulitis. Normal appendix. 3.1 centimeter ovarian cyst without significant free fluid. Small umbilical hernia IMPRESSION: 4.3 centimeter low-density area within the left lobe of the liver extending to the perip po may represent an area of unusual appearance focal fatty infiltration. Another consideration is t hat this represents an infarction. This should be correlated clinically. Ultrasound may be helpful fo r further evaluation. 3.1 centimeter ovarian cyst without significant free fluid.
--- NOTE | 2021-01-28 12:12 | RAD REPORT ---
EXAM DESCRIPTION: US - Liver Only - 01/28/2021 11:05 am CLINICAL HISTORY: Abdominal pain COMPARISON: January 28, 2021 cat scan FINDINGS: Subtle area of increased echotexture is present within the left lobe of the liver near the same location as the abnormality seen on CT. Hepatopetal flow. A gallstone is not seen. Gallbladder wall is not thickened. Biliary tree normal caliber IMPRESSION: Subtle area of increased echotexture in the left lobe of the liver has more of the appea tonia of focal fatty infiltration than an infarct. If the patient's symptoms do not improve then followup MRI liver would be recommended
--- NOTE | 2021-01-28 12:34 | EDPHYS ---
Physician Documentation [facility] Name: Jailyn Huber Age: 45 yrs Sex: Female : 1975 Arrival Date: 01/28/2021 Time: 07:47 Bed 19 Private MD: ED Physician Danica Joshi HPI: 01/28 08:27 This 45 yrs old Female presents to ER via Ambulatory with complaints of sp3 Abdominal Pain. 08:27 45-year-old female with history of hypertension, hypothyroidism, and fibromyalgia that sp3 presents with a 3-week history of watery diarrhea and abdominal cramping that has progressively gotten worse and led to her having decreased p.o. intake. Patient denies having any odd or undercooked foods or foods where others have become ill. Patient did state that she had Covid 19 just prior to this and feels that it may be related. 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 Patient states that she now has 1-2 episodes of diarrhea per day and is usually short while after having p.o. intake. She still has good urine output and denies any near syncope or feelings of dehydration.. 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 - Social history:: Smoking status: Reported history of juuling and/or vaping. ROS: 08:29 Constitutional: Negative for fever, chills, and weight loss, Eyes: Negative for injury, sp3 pain, redness, and discharge, ENT: Negative for injury, pain, and discharge, Neck: Negative for injury, pain, and swelling, Cardiovascular: Negative for chest pain, palpitations, and edema, Respiratory: Negative for shortness of breath, cough, wheezing, and pleuritic chest pain, Back: Negative for injury and pain, : Negative for injury, bleeding, discharge, and swelling, MS/Extremity: Negative for injury and deformity, Skin: Negative for injury, rash, and discoloration, Neuro: Negative for headache, weakness, numbness, tingling, and seizure, Psych: Negative for depression, anxiety, suicide ideation, homicidal ideation, and hallucinations, Allergy/Immunology: Negative for hives, rash, and allergies, Endocrine: Negative for neck swelling, polydipsia, polyuria, polyphagia, and marked weight changes, Hematologic/Lymphatic: Negative for swollen nodes, abnormal bleeding, and unusual bruising. 08:29 All other systems are negative. Exam: 08:29 Constitutional: This is a well developed, well nourished patient who is awake, alert, sp3 and in no acute distress. Head/Face: Normocephalic, atraumatic. Eyes: Pupils equal round and reactive to light, extra-ocular motions intact. Lids and lashes normal. Conjunctiva and sclera are non-icteric and not injected. Cornea within normal limits. Periorbital areas with no swelling, redness, or edema. ENT: Nares patent. No nasal discharge, no septal abnormalities noted. External auditory canals are clear. Oropharynx with no redness, swelling, or masses, exudates, or evidence of obstruction, uvula midline. Mucous membranes moist. Neck: Trachea midline, no thyromegaly or masses palpated, and no cervical lymphadenopathy. Supple, full range of motion without nuchal rigidity, or vertebral point tenderness. No Meningismus. Chest/axilla: Normal chest wall appearance and motion. Nontender with no deformity. No lesions are appreciated. Cardiovascular: Regular rate and rhythm with a normal S1 and S2. No gallops, murmurs, or rubs. Normal PMI, no JVD. No pulse deficits. Respiratory: Lungs have equal breath sounds bilaterally, clear to auscultation and percussion. No rales, rhonchi or wheezes noted. No increased work of breathing, no retractions or nasal flaring. Back: No spinal tenderness. No costovertebral tenderness. Full range of motion. Skin: Warm, dry with normal turgor. Normal color with no rashes, no lesions, and no evidence of cellulitis. MS/ Extremity: Pulses equal, no cyanosis. Neurovascular intact. Full, normal range of motion. Neuro: Awake and alert, GCS 15, oriented to person, place, time, and situation. Cranial nerves II-XII grossly intact. Motor strength 5/5 in all extremities. Sensory grossly intact. Cerebellar exam normal. Normal gait. Psych: Awake, alert, with orientation to person, place and time. Behavior, mood, and affect are within normal limits. 08:29 Abdomen/GI: Abdomen is soft and nondistended. Patient has no peritoneal signs including rebound or guarding. Patient does have diffuse mild tenderness to palpation and hyperactive bowel sounds. No lower abdominal pain including when bladder is palpated.. Vital Signs: 07:58 BP 144 / 82; Pulse 68; Resp 18; Temp 98.2(O); Pulse Ox 99% on R/A; sl2 08:00 BP 147 / 83; Pulse 66; Resp 17; Temp 98.2; Pulse Ox 100% ; Weight 108.86 kg; Height 5 jl7 ft. 4 in. (162.56 cm); Pain 4/10; 09:30 BP 127 / 71; Pulse 86; Resp 18; Temp 98.2(O); Pulse Ox 100% on R/A; sl2 10:30 BP 113 / 57; Pulse 51; Resp 18; Temp 98.4(O); Pulse Ox 99% on R/A; sl2 11:41 BP 114 / 78; Pulse 45; Resp 16; Pulse Ox 98% on R/A; mh5 12:40 BP 109 / 68; Pulse 58; Resp 18; Temp 98.2; Pulse Ox 100% ; sl2 08:00 Body Mass Index 41.20 (108.86 kg, 162.56 cm) jl7 MDM: 07:56 Patient medically screened. sp3 08:30 Data reviewed: vital signs, nurses notes. ED course: 45-year-old female with no sp3 significant past medical history now with abdominal cramping and diarrhea consistent with infectious diarrhea. Will obtain laboratory values and administer IV fluids as well as get a CT scan of her abdomen and pelvis. Given her surgical history including gastric sleeve and , it is prudent we rule out any bowel pathology that may be contributing to her symptoms. If her work-up is negative, we will discharge patient home on antibiotics and PCP follow-up. Stool studies will be obtained if patient can provide a sample.. 12:33 ED course: Ultrasound demonstrates fatty infiltration as opposed to infarct. Therefore sp3 nonemergent. Will discharge patient on Cipro and Flagyl with follow-up with PCP.. 01/28 08:06 Order name: Basic Metabolic Panel; Complete Time: 10:12 sp3 01/28 08:06 Order name: CBC with Diff; Complete Time: 10:12 sp3 01/28 08:06 Order name: Hepatic Function; Complete Time: 10:12 sp3 01/28 08:06 Order name: Lipase; Complete Time: 10:12 sp3 01/28 08:21 Order name: Urine Dipstick-Ancillary; Complete Time: 10:12 EDMS 01/28 08:25 Order name: Urine --Ancillary (enter results) eb 01/28 08:06 Order name: IV Saline Lock; Complete Time: 08:14 sp3 01/28 08:06 Order name: Labs collected and sent; Complete Time: 08:14 sp3 01/28 08:06 Order name: Urine Dipstick-Ancillary (obtain specimen); Complete Time: 08:21 sp3 01/28 08:06 Order name: CT Abd/Pelvis - IV Contrast Only; Complete Time: 10:12 sp3 01/28 08:25 Order name: Urine --Ancillary; Complete Time: 10:12 EDMS 01/28 11:04 Order name: Liver Only; Complete Time: 12:33 EDMS 01/28 08:06 Order name: Urine Test (obtain specimen); Complete Time: 08:21 sp3 Administered Medications: 08:15 Drug: NS 0.9% 1000 ml Route: IV; Rate: 1 bolus; Site: left antecubital; sl2 08:23 Follow up: Response: No adverse reaction sl2 10:34 Follow up: IV Status: Completed infusion; IV Intake: 1000ml sl2 Disposition Summary: 01/28/21 12:34 Discharge Ordered Location: Home sp3 Condition: Stable sp3 Diagnosis - Diarrhea, unspecified sp3 Followup: sp3 - With: Private Physician - When: - Reason: Re-evaluation by your physician Discharge Instructions: - Discharge Summary Sheet sp3 - Food Choices to Help Relieve Diarrhea, Adult sp3 - Diarrhea, Adult sp3 Forms: - Work release form eb - Medication Reconciliation Form sp3 - Thank You Letter sp3 - Antibiotic Education sp3 - Prescription Opioid Use sp3 Prescriptions: - Cipro 500 mg Oral Tablet - take 1 tablet by ORAL route every 12 hours for 10 days; 20 tablet; Refills: 0, sp3 Product Selection Permitted - Flagyl 500 mg Oral Tablet - take 1 tablet by ORAL route every 12 hours for 7 days; 14 tablet; Refills: 0, sp3 Product Selection Permitted Signatures: Dispatcher [employer] Yari David, RN RN jl7 Danica Joshi MD MD sp3 Mariah Rivera RN RN sl2 Corrections: (The following items were deleted from the chart) 11:04 10:14 Abdomen Limited+.JIMBO ordered. JACOB JAMES
--- NOTE | 2021-01-28 12:34 | ER ---
Nurse's Notes [facility] Name: Jailyn Huber Age: 45 yrs Sex: Female : 1975 Arrival Date: 01/28/2021 Time: 07:47 Bed 19 Private MD: Diagnosis: Diarrhea, unspecified Presentation: 01/28 08:00 Chief complaint: Patient states: Right sided abdominal pain after eating x 3-4 weeks jl7 with diarrhea. Coronavirus screen: At this time, the client does not indicate any symptoms associated with coronavirus-19. Ebola Screen: No symptoms or risks identified at this time. Initial Sepsis Screen: Does the patient meet any 2 criteria? No. Patient's initial sepsis screen is negative. Does the patient have a suspected source of infection? No. Patient's initial sepsis screen is negative. Risk Assessment: Do you want to hurt yourself or someone else? Patient reports no desire to harm self or others. Onset of symptoms is unknown. 08:00 Method Of Arrival: Ambulatory jl7 08:00 Acuity: MISSY 3 jl7 Triage Assessment: 08:02 General: Appears in no apparent distress. uncomfortable, Behavior is calm, cooperative, jl7 appropriate for age. Pain: Denies pain. GI: Abdomen is non-distended. 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 - Social history:: Smoking status: Reported history of juuling and/or vaping. Screenin:58 Abuse screen: Denies threats or abuse. Nutritional screening: No deficits noted. sl2 Tuberculosis screening: No symptoms or risk factors identified. Fall Risk None identified. No fall in past 12 months (0 pts). No secondary diagnosis (0 pts). IV access (20 points). Ambulatory Aid- None/Bed Rest/Nurse Assist (0 pts). Gait- Normal/Bed Rest/Wheelchair (0 pts) Mental Status- Oriented to own ability (0 pts). Assessment: 07:58 General: Appears in no apparent distress. obese, well groomed, well developed, Behavior sl2 is calm, cooperative, appropriate for age, Reports abdominal pain and diarrhea Denies fever. Pain: Denies pain. Neuro: No deficits noted. Neuro: Level of Consciousness is awake, alert, obeys commands, Oriented to person, place, time, situation. Cardiovascular: No deficits noted. Respiratory: No deficits noted. GI: Bowel sounds present X 4 quads. Abd is soft and non tender X 4 quads. Reports lower abdominal pain, upper abdominal pain, diarrhea, Patient currently denies. : No deficits noted. No signs and/or symptoms were reported regarding the genitourinary system. EENT: No deficits noted. No signs and/or symptoms were reported regarding the EENT system. Derm: No deficits noted. No signs and/or symptoms reported regarding the dermatologic system. Musculoskeletal: No deficits noted. No signs and/or symptoms reported regarding the musculoskeletal system. 10:40 Reassessment: Patient lying quietly in bed - shows no signs of acute distress or sl2 discomfort - VSS. Awaiting ultrasound, will re-assess and continue to monitor. Vital Signs: 07:58 BP 144 / 82; Pulse 68; Resp 18; Temp 98.2(O); Pulse Ox 99% on R/A; sl2 08:00 BP 147 / 83; Pulse 66; Resp 17; Temp 98.2; Pulse Ox 100% ; Weight 108.86 kg; Height 5 jl7 ft. 4 in. (162.56 cm); Pain 4/10; 09:30 BP 127 / 71; Pulse 86; Resp 18; Temp 98.2(O); Pulse Ox 100% on R/A; sl2 10:30 BP 113 / 57; Pulse 51; Resp 18; Temp 98.4(O); Pulse Ox 99% on R/A; sl2 11:41 BP 114 / 78; Pulse 45; Resp 16; Pulse Ox 98% on R/A; 5 12:40 BP 109 / 68; Pulse 58; Resp 18; Temp 98.2; Pulse Ox 100% ; sl2 08:00 Body Mass Index 41.20 (108.86 kg, 162.56 cm) jl7 ED Course: 07:47 Patient arrived in ED. ds1 07:55 Mariah Rivera, ARACELY is Primary Nurse. sl2 07:55 Danica Joshi MD is Attending Physician. sp3 07:58 Inserted saline lock: 20 gauge in left antecubital area, using aseptic technique. sl2 07:58 Inserted saline lock: Blood collected. sl2 08:01 Patient has correct armband on for positive identification. Placed in gown. Bed in low mh5 position. Call light in reach. Side rails up X 1. Warm blanket given. Pulse ox on. NIBP on. 08:02 Triage completed. jl7 08:02 Arm band placed on right wrist. 7 08:21 Basic Metabolic Panel Sent. 5 08:21 CBC with Diff Sent. 5 08:21 Hepatic Function Sent. 5 08:21 Lipase Sent. 5 08:21 Initial lab(s) drawn, by ED staff, sent to lab. Urine collected: clean catch specimen, [facility] cloudy. 08:27 Urine --Ancillary (enter results) Sent. mh5 08:27 Urine --Ancillary Sent. mh5 08:[address] via wheelchair. sl2 08:39 CT Abd/Pelvis - IV Contrast Only In Process Unspecified. EDMS 08:39 Patient moved back from [address]. sl2 08:39 No apparent distress. Awaiting radiology results. sl2 10:39 Awaiting: Ultrasound. sl2 11:05 Liver Only In Process Unspecified. EDMS 13:03 No provider procedures requiring assistance completed. IV discontinued, intact, sl2 bleeding controlled, No redness/swelling at site. Pressure dressing applied. Administered Medications: 08:15 Drug: NS 0.9% 1000 ml Route: IV; Rate: 1 bolus; Site: left antecubital; sl2 08:23 Follow up: Response: No adverse reaction sl2 10:34 Follow up: IV Status: Completed infusion; IV Intake: 1000ml sl2 Intake: 10:34 IV: 1000ml; Total: 1000ml. sl2 Outcome: 12:34 Discharge ordered by . sp3 13:03 Discharged to home ambulatory. sl2 13:03 Condition: stable 13:03 Discharge instructions given to Instructed on discharge instructions, follow up and referral plans. no drinking with medication, medication usage, Demonstrated understanding of instructions, follow-up care, medications, Prescriptions given X 2. 13:05 Patient left the ED. sl2 Signatures: Dispatcher [employer] EDMI Graciela Baird Maria 5 Yari Luis, RN RN jl7 Danica Joshi MD MD sp3 Mariah Rivera RN RN sl2
[2021-01-28 13:44] VITALS: BP 109/68; TEMP 98.2; O2SAT 100
--- OUTSIDE RECORDS SUMMARY | 2021-02-03 15:01 | XMS REPORT | Continuity of Care Document ---
:1975 Author Organization [facility] t Address [address] [place] [address] Care Team Providers Name Role Phone Adonis Quinn Attending Clinician Provider, Urgent Care Attending Clinician Unavailable ADONIS VERDUZCO Attending Clinician Unavailable Doctor Unassigned, Name Attending Clinician Unavailable Lab, Fam Pob I Attending Clinician Unavailable Keli VIERA E Attending Clinician Haley DICKEY Attending Clinician Unavailable Payers Payer Name Policy Type Policy Number Effective Date Expiration Date S ource Problems Condition Condition Condition Status Onset Resolution Last Treating Co mments Source Name Details Category Date Date Treatment Clinician Date HTN HTN Disease Active Univers (hypertens (hypertens -29 it y of ion) ion) 00:00: [facility] Fibromyalg Fibromyalg Disease Active U nivers ia ia 4- ity of 00:00: [facility] Acute Acute Disease Active Univers viral viral - ity of syndrome syndrome 00:00: [facility] Exposure Exposure Disease Active Unive rs to to - ity of SARS-assoc SARS-assoc [place] Medical coronaviru coronaviru Br anch s s Other Other Disease Active Univers headache headache -29 ity of syndrome syndrome 00:00: [facility] Nose Nose Disease Active Univers congestion congestion 4-29 it y of 00:00: [place] 00 Medical Branch Allergies, Adverse Reactions, Alerts Allergy Allergy Status Severity Reaction(s) Onset Inactive Treating Comm ents Source Name Type Date Date Clinician NO KNOWN Drug Active Univers ALLERGIE Class ity of S [facility] Social History Social Habit Start Date Stop Date Quantity Comments Source Exposure to Yes [facility] SARS-CoV-2 (event) Medica l Branch Sex Assigned At [birth year] [facility] 00:00:00 00:00:00 Medical Branch Smoking Status Start Date Stop Date Source Unknown if ever smoked [facility] Medications Ordered Filled Start Stop Current Ordering Indication Dosage Frequency Signature Comments Components Source Medication Medication Date Date Medication? Clinician (SIG) Name Name acetaminoph Yes [id number] 650mg Take 1 Univers en 650 mg 4-29 tablet by ity o f CR tablet 00:00: mouth [place] 00 every 8 Medical (eight) Branch hours as needed for Pain or Fever. cetirizine Yes [id number] 10mg Take 1 Univers (ZYRTEC) 10 4-29 tablet [place] mg [place] bed[place] Medical needed for Branch Allergies. Ascorbic Yes [id number] 1{tbl} Take 1 Univers Acid 4-29 tablet by ity of (VITAMIN C) 00:00: mouth [place] 1,000 mg 00 daily. Medical TbSR Branch Zinc 50 mg Yes [id number] 1{tbl} Take 1 Univers Tab 4-29 tablet by ity of 00:00: mouth [place] 00 daily. Medical Branch acetaminoph Yes [id number] 10mL Take 10 mL Univers en-DM 4-29 by mouth 2 ity of (ROBITUSSIN 00:00: (two) [place] COUGH-SORE 00 times Medical THROAT) daily as Branch 325-10 needed mg/10 mL (Cough). Liqd acetaminoph Yes [id number] 650mg Take 1 Univers en 650 mg 4-29 tablet by ity o f CR tablet 00:00: mouth [place] 00 every 8 Medical (eight) Branch hours as needed for Pain or Fever. cetirizine Yes [id number] 10mg Take 1 Univers (ZYRTEC) 10 4-29 tablet by [place]y of mg tablet [place] bedtime as Medical needed for Branch Allergies. Ascorbic Yes [id number] 1{tbl} Take 1 Univers Acid 4-29 tablet by ity of (VITAMIN C) 00:00: mouth [place] 1,000 mg 00 daily. Medical TbSR Branch Zinc 50 mg Yes [id number] 1{tbl} Take 1 Univers Tab 4-29 tablet by ity of 00:00: mouth [place] 00 daily. Medical Branch acetaminoph Yes [id number] 10mL Take 10 mL Univers en-DM 4-29 by mouth 2 ity of (ROBITUSSIN 00:00: (two) [place] COUGH-SORE 00 times Medical THROAT) daily as Branch 325-10 needed mg/10 mL (Cough). Liqd fluticasone Yes [id number] 1{spray Use 1 Univers propionate 4-29 } [place] in ity o f 50 00:00: each [place] mcg/actuati 00 nostril Medic al on nasal daily. Branch spray acetaminoph Yes [id number] 650mg Take 1 Univers en 650 mg 4-29 tablet by ity o f CR tablet 00:00: mouth [place] 00 every 8 Medical (eight) Branch hours as needed for Pain or Fever. cetirizine Yes [id number] 10mg Take 1 Univers (ZYRTEC) 10 4-29 tablet by ity of mg tablet [place] bedtime as Medical needed for Branch Allergies. Ascorbic Yes [id number] 1{tbl} Take 1 Univers Acid 4-29 tablet by ity of (VITAMIN C) 00:00: mouth [place] 1,000 mg 00 daily. Medical TbSR Branch Zinc 50 mg 0 Yes [id number] 1{tbl} Take 1 Univers Tab 4-29 tablet by ity of 00:00: mouth [place] 00 daily. Medical Branch acetaminoph Yes [id number] 10mL Take 10 mL Univers en-DM 4-29 by mouth 2 ity of (ROBITUSSIN 00:00: (two) [place] COUGH-SORE 00 times Medical THROAT) daily as Branch 325-10 needed mg/10 mL (Cough). Liqd fluticasone Yes [id number] 1{spray Use 1 Univers propionate 4-29 } [place] in ity o f 50 00:00: each [place] mcg/actuati 00 nostril Medic al on nasal daily. Branch spray sulfamethox 2016-03 Yes 1{tbl} Take 1 Un bunny azole-trime 2-22 tablet by ity of thoprim 00:00: mouth [place] 800-160 mg 00 every 12 Medic al per tablet (twelve) Branc h hours. traMADOL 2016-03 Yes 50mg Take 1 Univers (ULTRAM) 50 2-22 tablet by ity of mg tablet 00:00: mouth [place] 00 every 6 Medical (six) Branch hours as needed for Pain (scale 4-6). sulfamethox 2016-03 Yes 1{tbl} Take 1 Un bunny azole-trime 2-22 tablet by ity of thoprim 00:00: mouth [place] 800-160 mg 00 every 12 Medic al per tablet (twelve) Branc h hours. traMADOL 2016-03 Yes 50mg Take 1 Univers (ULTRAM) 50 2-22 tablet by ity of mg tablet 00:00: mouth [place] 00 every 6 Medical (six) Branch hours as needed for Pain (scale 4-6). sulfamethox 2016-03 Yes 1{tbl} Take 1 Un bunny azole-trime 2-22 tablet by ity of thoprim 00:00: mouth [place] 800-160 mg 00 every 12 Medic al per tablet (twelve) Branc h hours. traMADOL 2016-03 Yes 50mg Take 1 Univers (ULTRAM) 50 2-22 tablet by ity of mg tablet 00:00: mouth [place] 00 every 6 Medical (six) Branch hours as needed for Pain (scale 4-6). sulfamethox 2016-03 Yes 1{tbl} Take 1 Un bunny azole-trime 2-22 tablet by ity of thoprim 00:00: mouth [place] 800-160 mg 00 every 12 Medic al per tablet (twelve) Branc h hours. traMADOL 2016-03 Yes 50mg Take 1 Univers (ULTRAM) 50 2-22 tablet by ity of mg tablet 00:00: mouth [place] 00 every 6 Medical (six) Branch hours as needed for Pain (scale 4-6). sulfamethox 2016-03 Yes 1{tbl} Take 1 Un bunny azole-trime 2-22 tablet by ity of thoprim 00:00: mouth [place] 800-160 mg 00 every 12 Medic al per tablet (twelve) Branc h hours. traMADOL 2016-03 Yes 50mg Take 1 Univers (ULTRAM) 50 2-22 tablet by ity of mg tablet 00:00: mouth [place] 00 every 6 Medical (six) Branch hours as needed for Pain (scale 4-6). Vital Signs Vital Name Observation Time Observation Value Comments Source Systolic blood 2020-07-20 21:40:00 142 mm[Hg] [facility] [place] [facility] Diastolic blood 2020-07-20 21:40:00 88 mm[facility]Hg[facility] rate 2020-07-20 21:40:00 52 /min [facility] Body temperature 2020-07-20 21:40:00 37.06 [place] [facility] height 2020-07-20 21:40:00 162.6 cm [facility] Body weight 2020-07-20 21:40:00 104.327 kg [facility] BMI 2020-07-20 21:40:00 39.48 kg/m2 [facility] Oxygen saturation in 2020-07-20 21:40:00 98 /min [facility] Arterial blood by [facility] Pulse oximetry [place] Procedures Procedure Date / Time Performed Performing Clinician Sour e ASSIGNMENT OF BENEFITS 2020-07-20 21:22:42 Doctor Unassigned, No [facility] Encounters Start End Encounter Admission Attending Care Care Encounter Source Date/Time Date/Time Type Type Clinicians Facility Department ID 2020-07-26 2020-07-26 Telephone [place] [facility] [id number] [facility] [place] [facility] 00:00:00 00:00:00 [facility] [id number] it y of Adonis Nicholson [id number] [place] as Pinky [id number] [place] [address] [address] 2020-07-20 2020-07-20 Urgent Provider, [facility] [id number] Univers 16:24:57 16:44:57 Care Elsie Verduzco [facility] [id number] ity of [place] [id number] [place] as Professio [id number] [address] Office [address] 2020-07-20 2020-07-20 Outpatient R [facility] [id number] Univers 16:20:00 16:20:00 [id number] ity [facility] 2020-07-20 2020-07-20 [facility] [id number] Univers 16:20:00 16:20:00 [facility] 2020-07-20 2020-07-20 Orders Doctor FELIPE [id number] 00:00:00 00:00:00 Only Unassigned, JOE [id number] [place] [facility] [id number] [place] as [id number] [address] 2020-07-16 2020-07-16 Laboratory Lab, Adc Fam Pob I [facility] [id number] Univers 12:14:21 12:34:21 Only Hermilo Dickey [facility] [id number] ity of [place] [id number] [place] as Professio [id number] [address] 2020-07-16 2020-07-16 [facility] [id number] Univers 12:00:00 12:00:00 [facility] Results This patient has no known results.
== END 2021-01-28 13:05 | disposition home or self-care (01) ==
LOC: ER 07:45
DX: R19.7 Diarrhea, unspecified (principal); I10 Essential (primary) hypertension; E03.9 Hypothyroidism, unspecified; M79.7 Fibromyalgia; Z98.84 Bariatric surgery status
CPT/HCPCS: 36415; 74177; 76705; 80048; 80076; 81003; 81025; 82565; 83690; 85025; 96360; 96361; 99284; J7030; Q9967